=== PATIENT | male | born 1965 | race Caucasian/White ===

== ENCOUNTER 2017-06-15 18:37 | Emergency (ER) | payer MEDICAID, OTHER ==
[2017-06-15] MEDS ORDERED: FOLIC ACID INJ 5 MG/ML VIAL IV ONE (19:03)
[2017-06-15] MEDS ORDERED: SODIUM CHLORIDE 0.9% 1000ML 1,000 ML ONE (19:06)
[2017-06-15] MEDS ORDERED: THIAMINE HCL INJ 100 MG/ML VIAL ONE (19:07)
[2017-06-15] MEDS ORDERED: MULTIPLE VITAMIN 10 ML VIAL ONE (19:07)
--- NOTE | 2017-06-15 19:08 | ED.PDOC ---
History of Present Illness - General Chief Complaint: Neuro Symptoms/Deficits Stated Complaint: Altered mental status Time Seen by Provider: 06/15/17 18:54 Source: patient, other - neighbor Exam Limitations: intoxication - History of Present Illness Initial Comments: Patient presents after a neighbor noticed he was confused and likely intoxicated. The patient is a daily drinker and smoker. He says that he has been drinking tequila today but is trying to quit. He is a poor historian and cannot remember where he was when he started drinking today. He does not know where he has been or what town he is in. He has no complaints. No other history is available. Timing/Duration: unsure Improving Factors: nothing Worsening Factors: nothing Associated Symptoms: denies symptoms Allergies/Adverse Reactions: Allergies NO KNOWN ALLERGY Allergy (Verified 06/15/17 18:49) Home Medications: Ambulatory Orders NK [NK] 06/15/17 Review of Systems - Review of Systems Unable to Obtain Due To: condition, other - intoxication Past Medical History (General) - Patient Medical History Hx Stroke: No Hx Congestive Heart Failure: No Hx Diabetes: No - Vaccination History Hx Tetanus, Diphtheria Vaccination: Yes - 3-4 years ago Hx Influenza Vaccination: No Hx Pneumococcal Vaccination: No - Social History Hx Tobacco Use: Yes Hx Alcohol Use: Yes Hx Substance Use: Yes Family Medical History - Family History Mother Family History: Unknown Living Status: Still Living Physical Exam - Physical Exam General Appearance: Other - intoxicated and confused, alert to person but not place or year Eye Exam: bilateral normal Ears, Nose, Throat: hearing grossly normal, normal ENT inspection Neck: non-tender, full range of motion, supple Respiratory: chest non-tender, lungs clear, normal breath sounds Cardiovascular/Chest: normal peripheral pulses, regular rate, rhythm Gastrointestinal/Abdominal: normal bowel sounds, non tender, soft Back Exam: normal inspection, no CVA tenderness Extremity: normal range of motion, non-tender, normal inspection Neurologic: fiberglass laminator II-XII nml as tested, no motor/sensory deficits Skin Exam: normal color Lymphatic: no adenopathy Progress - Progress Progress: 06/15/17 21:13 Laboratory Tests 06/15/17 06/15/17 06/15/17 19:15 19:15 19:15 WBC 13.1 H RBC 5.06 Hgb 16.2 Hct 47.6 MCV 94.2 H MCH 32.0 H MCHC 33.9 RDW 14.9 H Plt Count 274 MPV 7.4 Absolute Neuts (auto) 8.50 H Absolute Lymphs (auto) 3.10 Absolute Monos (auto) 1.00 H Absolute Eos (auto) 0.30 Absolute Basos (auto) 0.10 Neutrophils % 65.0 Lymphocytes % 23.8 Monocytes % 7.9 Eosinophils % 2.5 Basophils % 0.8 Sodium 142 Potassium 3.8 Chloride 110 Carbon Dioxide 22 Anion Gap 13.8 BUN 14 Creatinine 0.73 BUN/Creatinine Ratio 19.2 Random Glucose 98 Serum Osmolality 283.6 Calcium 9.2 Total Bilirubin 0.8 AST 43 H ALT 72 H Alkaline Phosphatase 72 Serum Total Protein 7.6 Albumin 4.2 Globulin 3.4 Albumin/Globulin Ratio 1.2 Lipase Salicylates Urine Opiates Screen Acetaminophen Urine Barbiturates Ur Phencyclidine Scrn U Amphetamin/Meth Scrn U Benzodiazepines Scrn U Cocaine Metab Screen U Cannabinoids Screen Ethyl Alcohol 53.60 06/15/17 06/15/17 06/15/17 19:15 19:30 19:55 WBC RBC Hgb Hct MCV MCH MCHC RDW Plt Count MPV Absolute Neuts (auto) Absolute Lymphs (auto) Absolute Monos (auto) Absolute Eos (auto) Absolute Basos (auto) Neutrophils % Lymphocytes % Monocytes % Eosinophils % Basophils % Sodium Potassium Chloride Carbon Dioxide Anion Gap BUN Creatinine BUN/Creatinine Ratio Random Glucose Serum Osmolality Calcium Total Bilirubin AST ALT Alkaline Phosphatase Serum Total Protein Albumin Globulin Albumin/Globulin Ratio Lipase 33 Salicylates < 4.0 Urine Opiates Screen Negative Acetaminophen < 10.0 L Urine Barbiturates Negative Ur Phencyclidine Scrn Negative U Amphetamin/Meth Scrn Negative U Benzodiazepines Scrn Positive H U Cocaine Metab Screen Negative U Cannabinoids Screen Negative Ethyl Alcohol Patient received a Banana bag one liter x one. Ativan 1 mg IV x one. [facility] accepted him for transfer for alcohol withdrawal and detox. Departure - Departure Clinical Impression: Alcohol use with intoxication Disposition: Transfer to Hospital Condition: Fair Departure Forms: ED Discharge - Pt. Copy, Patient Portal Self Enrollment Diet: other - NPO Activity: other - as per hospitalist Referrals: Sonu Steiner MD [Primary Care Provider] - 1-2 Weeks Home Medications: Ambulatory Orders NK [NK] 06/15/17
[2017-06-15] MEDS ORDERED: MULTIPLE VITAMIN INJ 10 ML, THIAMINE HCL INJ 100 MG in SODIUM CHLORIDE 0.9% 1000ML 1,00... IVS ONE (19:30)
--- NOTE | 2017-06-15 21:10 | CT ---
EXAM DESCRIPTION: Head CLINICAL HISTORY: altered mental status COMPARISON: None Available TECHNIQUE: Contiguous axial CT images of the head were obtained. Coronal and sagittal reconstructions were created from the axial data. This exam was performed according to our departmental dose-optimization program, which includes automated exposure control, adjustment of the mA and/or kV according to patient size and/or use of iterative reconstruction technique. FINDINGS: There is no evidence of acute mass, mass effect, midline shift or hemorrhage. The ventricles and extra-axial CSF spaces are unremarkable. The brain parenchyma appears normal for the patient's age. No acute abnormalities of the bones is seen. IMPRESSION: No acute intracranial abnormality. Electronically signed by: Ariel Vickers 06/15/2017 9:09 PM [facility]
[2017-06-15 21:44] VITALS: BP 128/76; TEMP 98.6; O2SAT 96
== END 2017-06-15 21:35 | disposition short-term general hospital (02) ==
LOC: ER 18:37
DX: F10.129 Alcohol abuse with intoxication, unspecified (principal); Y90.2 Blood alcohol level of 40-59 mg/100 ml
CPT/HCPCS: 36415; 70450; 80053; 80307; 80320; 80329; 83690; 85025; J2060; J3411; J7030